=== PATIENT | male | born 1960 | race Caucasian/White ===

== ENCOUNTER → 2016-05-19 | Day surgery (SDC) | payer BC ==
[~2016-05-19] MED LIST: ANUSOL-HC CREAM30 G1 EXT; CARAFATE PO; COLACE PO; LEVOXYL125 MCG PO; LORTAB 5/500 TA1 TA1 PO; MULTI-VITAMIN1 TAB PO; NEXIUM PO; SYNTHROID PO; SYNTHROID0.05 MG DOB; ZITHROMAX1 G/PKT PO
--- NOTE | ~2016-05-19 | OR ---
Unit #: [id number] #: [id number] Patient: SADE MURILLO [id number] [place], [place] [address] [id number] MR#: [id number] NAME: SADE MURILLO ROOM: Date of Procedure: 05/19/2016 Admission Date: 05/19/2016 Surgeon: Zane Hanna M.D. : 1960 Attending Physician: Zane Hanna M.D. Primary Care Physician: Jose Angel Varner M.D. OPERATIVE REPORT PRIMARY CARE PHYSICIAN Jose Angel Varner M.D. PREOPERATIVE DIAGNOSES Colorectal cancer screening in a high-risk patient. The patient has family history of colon cancer in her father. PROCEDURE PERFORMED Colonoscopy up to cecum with excellent preparation and good visualization. POSTOPERATIVE DIAGNOSES Completely normal examination up to cecum. The quality of the prep was excellent. No polyps, diverticula, or hemorrhoids were seen. RECOMMENDATIONS Repeat colonoscopy in 5 years. SEDATION USED MAC. DESCRIPTION OF PROCEDURE Following detailed explanation of the potential risks and complications of a colonoscopy, namely perforation, bleeding, and complication related to sedation, the patient was brought to GI lab and laid in the left lateral decubitus position. A digital rectal examination was performed, which was normal. Lubricated tip of the Olympus video colonoscope was inserted through the anus and advanced under direct vision. The scope was advanced past rectosigmoid into descending colon. No diverticula were seen in this area. The scope tip was then navigated all the way up to cecum with visualization of the ileocecal valve and the appendiceal orifice. Preparation was excellent with good visualization and photodocumentation was obtained. Successive segments of the colonic mucosa were examined upon withdrawal and appeared unremarkable. There being no polyps, mass lesions, AVMs, or diverticula. The patient did not have any hemorrhoids at anal verge. The scope was then withdrawn and the patient returned to recovery area. She tolerated the procedure without any postprocedure complications. Dictated by... Zane Hanna M.D. Unit #: [id number] #: [id number] Patient: SADE MURILLO TALHA/zeyad TD: 05/19/2016 14:19 JOB #: [id number] OPERATIVE REPORT Page 1 of 1 X Zane Hanna MD PROCEDURE OPERATIVE NOTE
== END | disposition home or self-care (01) ==
LOC: COPS 09:54
PROVIDERS: Internal Medicine Gastroenterology
PROC: 0DJD8ZZ Inspection of Lower Intestinal Tract, Via Natural or Artificial Opening Endoscopic (ICD-10-PCS; principal; 2016-05-19 11:30)
DX: Z12.11 Encounter for screening for malignant neoplasm of colon (principal); Z80.0 Family history of malignant neoplasm of digestive organs; K21.9 Gastro-esophageal reflux disease without esophagitis; E03.9 Hypothyroidism, unspecified; Z79.899 Other long term (current) drug therapy; R07.9 Chest pain, unspecified
CPT/HCPCS: J2250